=== PATIENT | male | born 1990 | race Caucasian/White ===

== ENCOUNTER 2018-03-18 21:25 | Emergency (ER) | payer OTHER ==
[2018-03-18 21:40] VITALS: BP 136/88
--- NOTE | 2018-03-18 21:55 | UC ---
Respiratory Complaint HPI - HPI Summary HPI Summary: Per secondary school special ed teacher: "CHEST CONGESTION, PRODUCTIVE COUGH EAR CONGESTION AND PAIN X2 WEEKS" C/o rt ear pain. no fevers. had sinus pain but resolved. + wheezing. + asthma hx. grew out of it. only uses ventolin prn. last used > 12 hrs ago. - History of Current Complaint Chief Complaint: UCGeneralIllness Stated Complaint: CHEST CONGESTION Time Seen by Provider: 03/18/18 21:49 Pain Intensity: 6 - Allergies/Home Medications Allergies/Adverse Reactions: Allergies Allergy/AdvReac Type Severity Reaction Status Date / Time guaifenesin [From Mucinex] Allergy Hives Verified 03/18/18 21:40 Home Medications: Home Medications Albuterol HFA INHALER* [Ventolin HFA Inhaler*] 1 puff INH Q4HR 03/18/18 [ History Confirmed 03/18/18] Ibuprofen 400 mg PO Q8HR 03/18/18 [History Confirmed 03/18/18] PMH/Surg Hx/FS Hx/Imm Hx Previously Healthy: Yes Respiratory History: Asthma - Surgical History Surgical History: None - Family History Known Family History: Positive: Respiratory Disease - Social History Alcohol Use: Occasionally Substance Use Type: None Smoking Status (MU): Never Smoked Tobacco Have You Smoked in the Last Year: No Review of Systems Constitutional: Negative Skin: Negative Eyes: Negative ENT: Negative, Ear Ache, Sinus Congestion Respiratory: Cough, Other - +wheezing Cardiovascular: Negative Gastrointestinal: Negative Genitourinary: Negative Motor: Negative Neurovascular: Negative Musculoskeletal: Negative Neurological: Negative Psychological: Negative Is Patient Immunocompromised?: No All Other Systems Reviewed And Are Negative: Yes Physical Exam Triage Information Reviewed: Yes Appearance: Well-Appearing, No Pain Distress, Well-Nourished Vital Signs: Initial Vital Signs Temp 97.9 F 03/18/18 21:35 Pulse 90 03/18/18 21:35 Resp 20 03/18/18 21:35 BP 136/88 03/18/18 21:35 Pulse Ox 96 03/18/18 21:35 Vital Signs Reviewed: Yes Eye Exam: Normal ENT Exam: Normal ENT: Positive: Pharynx normal, Nasal congestion, Nasal drainage, TM bulging - right,, TM dull, TM red - right, left is nml.. Negative: Hoarse voice, Sinus tenderness Dental Exam: Normal Neck exam: Normal Neck: Positive: Supple, Nontender, No Lymphadenopathy Respiratory: Positive: No accessory muscle use, Decreased breath sounds, Wheezing - b/l mild-moderate throughout insp & exp. improved after coughing. Negative: Crackles, Rhonchi, Stridor Cardiovascular: Positive: RRR, No Murmur, Pulses Normal Abdomen Description: Positive: Nontender, Soft Musculoskeletal Exam: Normal Neurological Exam: Normal Psychological Exam: Normal Skin Exam: Normal UC Diagnostic Evaluation - Laboratory O2 Sat by Pulse Oximetry: 96 Respiratory Course/Dx - Course Course Of Treatment: Rt otitis media, asthmatic bronchitis. -amox 875mgs bid. -medrol dose pack. -ventonin Q 4-6 hrs. -probiotic. -he is very agreeable w/ this plan - Differential Dx/Diagnosis Differential Diagnosis/HQI/PQRI: Asthma, Bronchitis, Sinusitis Provider Diagnoses: asthmatic bronchitis, Rt OM Discharge - Sign-Out/Discharge Documenting (check all that apply): Post-Discharge Follow Up - Discharge Plan Condition: Stable Disposition: HOME Prescriptions: Albuterol HFA INHALER* [Ventolin HFA Inhaler*] 2 puff INH Q4H PRN #1 mdi PRN Reason: Cough Amoxicillin PO (*) [Amoxicillin 875 MG (*)] 875 mg PO BID #20 tab methylPREDNISolone [Medrol Dosepak 4 MG*] 4 mg PO DAILY #1 parth Patient Education Materials: Acute Bronchitis (ED), Ear Infection (ED) Referrals: Abbi Baez PA [Primary Care Provider] - 1 Week Additional Instructions: -Make sure to take a probiotic daily while on antibiotics to help prevent a potential complication of antibiotic use called c diff. Some well known brands that can be found OTC are DocDep, Agistics and HW. Make sure to complete the entire prescription unless advised otherwise by your health care provider. -We discussed risks of prednisone including but not limited to anxiety, agitation, insomnia, GI upset, elevated blood pressures and blood sugar readings , adrenal crisis and avascular necrosis of the hip. -You should use the albuterol every 4-6 hrs while you are sick. -You should be seen sooner in follow up if your symptoms worsen. - Billing Disposition and Condition Condition: STABLE Disposition: HOME
== END 2018-03-18 22:05 | disposition home or self-care (01) ==
LOC: UCCORT 21:25
DX: J45.909 Unspecified asthma, uncomplicated (principal); H66.91 Otitis media, unspecified, right ear; Z88.8 Allergy status to other drugs, medicaments and biological substances
CPT/HCPCS: 99202; G0463

== ENCOUNTER 2018-05-19 20:16 | Emergency (ER) | payer OTHER ==
[2018-05-19 20:25] VITALS: BP 159/90
[2018-05-19] MEDS ORDERED: cefTRIAXone VIAL(*) 250 MG VIAL IM ONE (21:03)
[2018-05-19] MEDS ORDERED: Azithromycin TAB* 250 MG PO ONE (21:03)
[2018-05-19] MEDS ORDERED: Lidocaine 1%* 5 ML VIAL INJ ONE (21:03)
--- NOTE | 2018-05-21 17:17 | UC ---
Complaint Male HPI - HPI Summary HPI Summary: patient may have been exposed to chlamydia 2 weeks ago---wishing testing and treatment--patient has no symptoms - History of Current Complaint Chief Complaint: UCSTDScreening Stated Complaint: PERSONAL Time Seen by Provider: 05/19/18 20:55 Hx Obtained From: Patient Pain Intensity: 0 Pain Scale Used: 0-10 Numeric Location: None Associated Signs And Symptoms: Positive: Negative - Allergies/Home Medications Allergies/Adverse Reactions: Allergies Allergy/AdvReac Type Severity Reaction Status Date / Time guaifenesin [From Mucinex] Allergy Hives Verified 03/18/18 21:40 PMH/Surg Hx/FS Hx/Imm Hx Previously Healthy: Yes - Surgical History Surgical History: None - Family History Known Family History: Positive: Respiratory Disease - Social History Occupation: Employed Full-time Lives: With Family Alcohol Use: Occasionally Substance Use Type: None Smoking Status (MU): Never Smoked Tobacco Have You Smoked in the Last Year: No Review of Systems Constitutional: Negative Skin: Negative Eyes: Negative ENT: Negative Respiratory: Negative Cardiovascular: Negative Gastrointestinal: Negative Genitourinary: Negative Motor: Negative Neurovascular: Negative Musculoskeletal: Negative Neurological: Negative Psychological: Negative Is Patient Immunocompromised?: No All Other Systems Reviewed And Are Negative: Yes Physical Exam Triage Information Reviewed: Yes Appearance: Well-Appearing, No Pain Distress, Well-Nourished Vital Signs: Initial Vital Signs Temp 99.1 F 05/19/18 20:22 Pulse 102 05/19/18 20:22 Resp 18 05/19/18 20:22 BP 159/90 05/19/18 20:22 Pulse Ox 99 05/19/18 20:22 Vital Signs Reviewed: Yes Eye Exam: Normal Eyes: Positive: Conjunctiva Clear ENT Exam: Normal ENT: Positive: Normal ENT inspection, Hearing grossly normal. Negative: Trismus , Muffled voice, Hoarse voice Dental Exam: Normal Neck exam: Normal Neck: Positive: Supple, Nontender Respiratory Exam: Normal Respiratory: Positive: Chest non-tender, No respiratory distress, No accessory muscle use Cardiovascular Exam: Normal Cardiovascular: Positive: RRR, Pulses Normal, Brisk Capillary Refill Musculoskeletal Exam: Normal Musculoskeletal: Positive: Strength Intact, ROM Intact, No Edema Neurological Exam: Normal Neurological: Positive: Alert, Muscle Tone Normal Psychological Exam: Normal Skin Exam: Normal Complaint Male Course/Dx - Course Course Of Treatment: urine sent to lab for gc/chlay. will treat with 1 gm zithromax and roceohin. Will give rx for 1 dose of EPT for new partner - Differential Dx/Diagnosis Provider Diagnoses: STD Exposure-post exposure treatment Discharge - Sign-Out/Discharge Documenting (check all that apply): Discharge/Admit/Transfer - Discharge Plan Condition: Stable Disposition: HOME Patient Education Materials: Safe Sex (ED), Hypertension (ED) Referrals: Abbi Baez PA [Primary Care Provider] - 2 Weeks - Billing Disposition and Condition Condition: STABLE Disposition: Home
== END 2018-05-19 21:40 | disposition home or self-care (01) ==
LOC: UCCORT 20:16
DX: Z20.2 Contact with and (suspected) exposure to infections with a predominantly sexual mode of transmission (principal); Z88.8 Allergy status to other drugs, medicaments and biological substances
CPT/HCPCS: 81003; 87491; 87591; 96372; 99212; A9270-GY; G0463; J0696